=== PATIENT | female | born 1960 | race Two or more races ===

== ENCOUNTER → 2017-06-17 | Outpatient (CLI) | payer BC ==
--- NOTE | 2017-06-18 06:54 | HKNOTE ---
DATE OF SERVICE: 06/17/2017 MAIN COMPLAINT: Pain in left groin. 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 She states that there was no actual injury. In fact, she had no pain until the next morning. Gradually the pain receded and she was co mpletely free of pain, only for the pain that started up again in April of this year after a stren uous bout of yoga. She still has the pain. Two days ago the pain was so severe that she could hardly walk. PRESENT COMPLAINTS: The main pain is localized to the anterior superior iliac spine. She did not s top working at her job as a nurse. The pain has become worse and she now wants an evaluation. At [facility] [place], she thought she may have a gynecological problem (she is a gynecological nurse). She obtained x-rays of her left hip which she brings with her. PRESENT COMPLAINTS: The pain is described as being moderate and is aggravated by walking, running a nd stair climbing. She does not have any rest pain, but she does still get night pain. She is not limping. She can walk 1-1/2 miles with her dog if she needs to without stopping, but the next day s he states "I pay for it". She has no history of back pain or back problems. She does get numbness and tingling in both legs. Her leg lengths are equal. She does not have a shoe lift. She can clip her toenails and tie her sh oelaces. SPORTING ACTIVITIES: Yoga. PAST ORTHOPEDIC HISTORY: Medial and lateral meniscectomies on the right knee in [place] in 1984, 198 6 (full open meniscectomy without arthroscopy). She has never taken cortisone. She does not drink alcoholic beverages. She does not have any probl ems with her knees, no other joint problems. BLOOD TEST FOR ARTHRITIS: Never. WORK STATUS: The patient is a nurse. PAST MEDICAL HISTORY: Entirely negative. PAST SURGICAL HISTORY: Open meniscectomies of the right knee 1984 in [place]. DRUG ALLERGIES: PENICILLIN CAUSES ANAPHYLACTIC SHOCK. MEDICATIONS: None. PHYSICAL EXAMINATION GENERAL: The patient is a fit and healthy looking 56-year-old female. VITAL SIGNS: Height 5 foot 2, weight 170 pounds. Blood pressure 135/63, temperature 98.0. GAIT: She does not use a walking aid and she is not limping. HIPS: Right hip: A full range of motion without pain. Examination of the left hip: A full range of motion without pain. No tenderness anywhere around either hip. RIGHT KNEE: The right knee shows normal alignment. Active and passive extension is 0 degrees. Activ e and passive flexion is 135 degrees. The medial and lateral collateral ligaments and cruciate ligam ents are intact. Virgil test is negative. There is no effusion, tenderness, scarring, crepitus, or cysts. The patella tracks normally. There is no tenderness on the articular surface of the patella o r in the patellar groove. The Q angle is normal. LEFT KNEE: The left knee shows normal alignment. Active and passive extension is 0 degrees. Active and passive flexion is 135 degrees. The medial and lateral collateral ligaments and cruciate ligamen ts are intact. Virgil test is negative. There is no effusion, tenderness, scarring, crepitus, or cy sts. The patella tracks normally. There is no tenderness on the articular surface of the patella or in the patellar groove. The Q angle is normal. IMAGING: X-rays of the left hip brought with her were reviewed (AP and lateral views). These show the most minimal narrowing of the left hip joint space. No sclerosis, no osteophytes. No osteonecr osis. DISCUSSION: A very dedicated 56-year-old female who complains of pain in her left groin. X-rays of her left knee are normal. She has been scheduled by another physician for an MRI scan of the left hip. She did not think she would have to go back to the hip doctor. She has not prepaid for her pelvic MRI, but she would like to discuss it with him to see. She was o ffered a "deal" for abdominal MRI for $700. MANAGEMENT: I had a long discussion. It was decided we will send her to Dr. Pancho Scales for the MRI. He will give her a much better break of the charges for the MRI and she will be seen again in a week's time for reevaluation. Dictated By: JAK LOU/YOCASTA Conf#: [id number] DID#: [id number]
== END | disposition home or self-care (01) ==
LOC: HKI 09:11
DX: R10.32 Left lower quadrant pain (principal); Z88.0 Allergy status to penicillin
CPT/HCPCS: G0463